=== PATIENT | female | born 1945 | race Caucasian/White ===

== ENCOUNTER 2018-10-30 17:14 | Inpatient (IN) | payer MEDICARE ==
[~2018-10-30] VITALS: Ht 167.6 cm; Wt 60.3 kg
[~2018-10-30 17:14] MED LIST: ADVIL; CALCIUM 600 MG1 EAC4; CALCIUM600 MG PO; COLACE100 MG PO; MELATONIN; PLAQUENIL200 MG PO; PREDNISONE5 MG PO; TYLENOL PM; TYLENOL WITH C1 EACH PO; ULTRAM50 MG PO; UNISOM50 MG PO; VITAMIN D PO; VITAMIN D-3 PO; Z.0.PLAQUENIL200 MG PO; Z.0.PREDNISONE5 MG PO; Z.0.VITAMIN D1000 UN PO
--- OUTSIDE RECORDS SUMMARY | 2018-10-30 17:20 | XMS REPORT ---
Author Author [facility] Address Unknown Phone Unavailable Care Team Providers Care Conference Coordinator Name Role Phone BELKIS WHEATLEY Unavailable Unavailable Problems This patient has no known problems. Allergies, Adverse Reactions, Alerts This patient has no known allergies or adverse reactions. Medications This patient has no known medications. Results Test Description Test Time Test Comments Text Results Atomic Results Result Comments SCR MAMM BILATERAL SKYLAR CAD DIGITAL 2018-06-27 16:12:12 - SCR MAMM BILATERAL SKYLAR CAD DIGITALBILATERAL DIGITAL SCREENING MAMMOGRAM 3D/2D WITH CAD: 06/27/2018CLINICAL: Asymptomatic. Digital breast tomosynthesis was performed in addition to routine CC and MLO views. Current mammographic images were evaluated by either a Yoogaia M-Vu or a TechZel ImageChecker CAD (computer aided detection system). Comparison is made to exams dated 05/20/2017 mammogram, 2016 mammogram, and 05/07/2015 mammogram - [facility]-. There are scattered fibroglandular tissues in both breasts. No suspicious mass, architectural distortion, malignant type calcification, or lymph node abnormality detected. Breast architecture is stable compared to prior exams.IMPRESSION: NEGATIVEThere is no mammographic evidence of malignancy. Resume annual screening mammography in one year. Francisca Main M.D. ar/penrad:06/27/2018 16:12:12 Furniture Painter: [place] , [facility]-FWletter sent: BIRADS 1-2 Normal Mammogram BI-RADS: 1 Negative POCT-GLUCOSE METER 2016-10-05 12:06:00 POC-GLUCOSE METER (BEAKER) (test iwku=3319) 143 mg/dL 70-110 TESTED AT [facility] [address] [facility] [address] POCT-GLUCOSE [id number] 05:48:00* Test Item Value Reference Range Comments POC-GLUCOSE METER (BEAKER) (test fmhk=3774) 109 mg/dL 70-110 TESTED AT [facility] [address] [facility] [address] BASIC METABOLIC [id number] 04:56:00* Test Item Value Reference Range Comments SODIUM (BEAKER) (test rrjs=018) 137 meq/L 136-145 POTASSIUM (BEAKER) (test ekoe=108) 4.0 meq/L 3.5-5.1 CHLORIDE (BEAKER) (test zkmp=827) 106 meq/L 98-107 CO2 (BEAKER) (test vabs=786) 23 meq/L 22-29 BLOOD UREA NITROGEN (BEAKER) (test vpbg=653) 13 mg/dL 7-21 CREATININE (BEAKER) (test beaa=257) 0.70 mg/dL 0.57-1.25 GLUCOSE RANDOM (BEAKER) (test fjki=039) 103 mg/dL 70-105 CALCIUM (BEAKER) (test nsnt=461) 7.9 mg/dL 8.4-10.2 EGFR (BEAKER) (test gegx=9998) 82 mL/min/1.73 sq m ESTIMATED GFR IS NOT ACCURATE CREATININE CLEARANCE IN PREDICTING GLOMERULAR FILTRATION RATE. ESTIMATED GFR IS NOT APPLICABLE FOR DIALYSIS PATIENTS. Once on admission and Daily AM afterwardsOnce on admission and Daily AM afterwar dsOnce on admission and Daily AM [id number] 04:55:00* Test Item Value Reference Range Comments PHOSPHORUS (BEAKER) (test mmza=772) 2.7 mg/dL 2.3-4.7 Once on admission and Daily AM afterwardsOnce on admission and Daily AM afterwar dsOnce on admission and Daily AM [id number] 04:55:00* Test Item Value Reference Range Comments MAGNESIUM (BEAKER) (test qqsp=191) 1.9 mg/dL 1.6-2.6 Once on admission and Daily AM afterwardsOnce on admission and Daily AM afterwar dsOnce on admission and Daily AM afterwardsPOCT-GLUCOSE [id number] 23:37:00 * Test Item Value Reference Range Comments POC-GLUCOSE METER (BEAKER) (test wsds=2766) 128 mg/dL 70-110 TESTED AT [facility] [address] [facility] [address] CBC W/PLT COUNT & AUTO [id number] 19:10:00* Test Item Value Reference Range Comments WHITE BLOOD CELL COUNT (BEAKER) (test qnhn=953) 13.5 K/ L 3.5-10.5 RED BLOOD CELL COUNT (BEAKER) (test yhld=029) 4.90 M/ L 3.93-5.22 HEMOGLOBIN (BEAKER) (test lhgm=804) 12.7 GM/DL 11.2-15.7 HEMATOCRIT (BEAKER) (test iyyq=899) 39.7 % 34.1-44.9 MEAN CORPUSCULAR VOLUME (BEAKER) (test ekjc=101) 81.0 fL 79.4-94.8 MEAN CORPUSCULAR HEMOGLOBIN (BEAKER) (test addv=143) 25.9 pg 25.6-32.2 MEAN CORPUSCULAR HEMOGLOBIN CONC (BEAKER) (test dyzy=726) 32.0 GM/DL 32.2-35.5 RED CELL DISTRIBUTION WIDTH (BEAKER) (test wchg=574) 16.2 % 11.7-14.4 PLATELET COUNT (BEAKER) (test dhmj=655) 178 K/CU MM 150-450 MEAN PLATELET VOLUME (BEAKER) (test jkqc=316) 10.6 fL 9.4-12.3 NUCLEATED RED BLOOD CELLS (BEAKER) (test phiy=186) 0 /100 WBC 0-0 IMMATURE GRANULOCYTES-RELATIVE PERCENT (BEAKER) (test licb=7074) 1 % 0-1 (MANUAL DIFFERENTIAL)2016-10-04 19:10:00* Test Item Value Reference Range Comments NEUTROPHILS - REL (DIFF) (BEAKER) (test qyep=9050) 61 % LYMPHOCYTES - REL (DIFF) (BEAKER) (test jalv=6676) 5 % MONOCYTES - REL (DIFF) (BEAKER) (test ryet=5081) 12 % EOSINOPHILS - REL (DIFF) (BEAKER) (test rumw=2270) 2 % METAMYELOCYTES-REL (DIFF) (BEAKER) (test fzew=204) 8 % 0-0 MYELOCYTES-REL (DIFF) (BEAKER) (test ixjg=9938) 4 % 0-0 BANDS - REL (DIFF) (BEAKER) (test xutu=6612) 8 % 0-10 NEUTROPHILS - ABS (DIFF) (BEAKER) (test wtpb=7404) 7.16 K/ L 1.80-8.00 LYMPHOCYTES - ABS (DIFF) (BEAKER) (test dxbu=5960) 0.59 K/ L 1.48-4.50 MONOCYTES - ABS (DIFF) (BEAKER) (test pcug=4978) 1.41 K/ L 0.00-1.30 EOSINOPHILS - ABS (DIFF) (BEAKER) (test jxzj=6476) 0.23 K/ L 0.00-0.50 METAMYELOCTYES - ABS (DIFF) (BEAKER) (test accu=936) 0.94 K/ L 0.00-0.00 BANDS-ABS (DIFF) (BEAKER) (test abeh=8696) 0.9 K/ L 0.0-0.8 MYELOCYTES-ABS (DIFF) (BEAKER) (test zyct=6497) 0.47 K/ L 0.00-0.00 TOTAL COUNTED (BEAKER) (test kmlu=4717) 100 BANDS + SEGMENTED NEUTROPHILS (BEAKER) (test vjyb=8223) 8.10 MANUAL NRBC PER 100 CELLS (BEAKER) (test oakc=0196) 15 /100 WBC 0-0 DOHLE BODIES (BEAKER) (test vgxn=207) Present GIANT PLATELETS (BEAKER) (test uyjk=535) Present ANISOCYTOSIS (BEAKER) (test geyg=290) 1+ few MACROCYTES (BEAKER) (test fxiq=663) 1+ few
--- OUTSIDE RECORDS SUMMARY | 2018-10-30 17:20 | XMS REPORT | Clinical Summary ---
Author Author [facility] Address Unknown Phone Unavailable Care Team Providers Care Director Multimedia Name Role Phone Adam Mcgrath MD PCP Allergies No Known Allergies Medications End Date Status Medication Sig Dispensed Refills Start Date Active hydroxychloroquine Take 200 mg 0 (PLAQUENIL) 200 mg tablet by mouth 2 (two) times daily. Active predniSONE (DELTASONE) 5 Take 5 mg by 0 MG tablet mouth daily. Active traMADol (ULTRAM) 50 mg Take 50 mg by 0 tablet mouth every 6 (six) hours as needed for Pain. Active calcium carbonate Take 600 mg 0 (OS-NEPTALI) 600 mg (1,500 by mouth 2 mg) Tab (two) times daily with breakfast and dinner. Active cholecalciferol, vitamin Take 1,000 0 D3, 1,000 unit capsule Units by mouth daily. Active metoprolol (LOPRESSOR) 25 Take 25 mg by 0 MG tablet mouth 2 (two) times daily. Active losartan (COZAAR) 25 MG Take 25 mg by 0 tablet mouth daily. Active Problems Problem Noted Date Subarachnoid hemorrhage 10/04/2016 Hypertension 10/04/2016 Rheumatoid arthritis(714.0) 10/04/2016 Family History Medical History Relation Name Comments Diabetes Brother Hypertension Brother Diabetes Father Hypertension Father Relation Name Status Comments Brother Father Social History Date Tobacco Use Types Packs/Day Years Used Never Smoker Alcohol Use Drinks/Week oz/Week Comments No Sex Assigned at Date Recorded Not on file Industry Job Start Date Occupation Not on file Not on file Not on file Travel End Travel History Travel Start No recent travel history available. Last Filed Vital Signs Not on file Plan of Treatment Not on file Results Not on fileafter 10/29/2017 Insurance Payer Benefit Subscriber ID Type Phone Address Plan / Group [employer] CIGNA xxxxxxxxxxx [facility] [employer] Contracted NG ALL Advance Directives For more information, please contact: [address] [address] Date Inactivated Comments Code Status Date Activated 10/05/2016 3:09 PM Full Code 10/04/2016 5:00 PM This code status was determined by: Patient
--- OUTSIDE RECORDS SUMMARY | 2018-10-30 17:25 | XMS REPORT | Clinical Summary ---
Author Author [facility]ARA [facility] Address Unknown Phone Unavailable Care Team Providers Care Code Official Name Role Phone Adam Mcgrath MD PCP [...] Plan / Group [employer] C[employer] xxxxxxxxxxx [facility] [employer] Contracted NG ALL Advance Directives For more information, please contact: [address] [address] Date Inactivated Comments Code Status Date Activated 10/05/2016 3:09 PM Full Code 10/04/2016 5:00 PM This code status was determined by: Patient
[2018-10-30] MEDS ORDERED: ACETAMINOPHEN 1000 MG/100 ML IV ONE (17:35)
[2018-10-30] MEDS ORDERED: SODIUM CHLORIDE 0.9% 1000ML 1,000 ML IV ONE (17:45)
--- NOTE | 2018-10-30 18:26 | NUR ---
STRAIGHT CATH INSERTED FOR UA VIA ASEPTIC TECHNIQUE PER MD ORDER; PT URINE OUTPUT APPROX 250 CC; UA COLLECTED AND SENT TO LAB
[2018-10-30 18:32] LABS: BASOPHILS # (AUTO) 0.1 (0.0-0.1); BASOPHILS % 0.3 % (0.0-1.0); BILIRUBIN,URINE NEGATIVE (NEGATIVE); CLARITY,URINE SL CLOUDY (CLEAR); COLOR,URINE YELLOW (YELLOW); EOSINOPHILS % 0.1 % (0.0-6.0); HEMATOCRIT 38.5 % (34.2-44.1); KETONES,URINE 1+ (NEGATIVE); LEUKOCYTE ESTERASE ,URINE NEGATIVE (NEGATIVE); LYMPHOCYTES # (AUTO) 12.9 (1.0-3.2); LYMPHOCYTES % 77.7 % (18.0-39.1); MEAN CORPUSCULAR HEMOGLOBIN 26.6 pg (28-32); MEAN CORPUSCULAR HGB CONC 33.8 g/dL (31-35); MEAN CORPUSCULAR VOLUME 78.9 fL (81-99); MONOCYTES # (AUTO) 1.2 (0.2-0.8); NEUTROPHILS # (AUTO) 2.4 (2.1-6.9); NEUTROPHILS % 14.7 % (38.7-80.0); NITRITE,URINE NEGATIVE (NEGATIVE); PLATELET COUNT 204 x10e3/uL (140-360); PROTEIN,URINE DIPSTICK 1+ (NEGATIVE); RED BLOOD COUNT 4.88 x10e6/uL (3.6-5.1); RED CELL DISTRIBUTION WIDTH 16.4 % (11.7-14.4); URINE UROBILINOGEN 0.2 mg/dL (0.2 - 1)
[2018-10-30 18:46] LABS: BACTERIA,URINE RARE /HPF; EPITHELIAL CELLS,URINE RARE /LPF
[2018-10-30 18:51] LABS: ALANINE AMINOTRANSFERASE 18 IU/L (0-55); ALBUMIN 3.3 g/dL (3.5-5.0); ALBUMIN/GLOBULIN RATIO 1.1 (0.8-2.0); ALKALINE PHOSPHATASE 44 IU/L (40-150); ANION GAP 15.5 mmol/L (8-16); BLOOD UREA NITROGEN 11 mg/dL (7-26); BUN/CREATININE RATIO 16 (6-25); CALCIUM 8.9 mg/dL (8.4-10.2); CARBON DIOXIDE 22 mmol/L (22-29); CHLORIDE 97 mmol/L (98-107); EST GLOMERULAR FILTRATION RATE > 60 ML/MIN (60-); GLUCOSE 94 mg/dL (74-118); POTASSIUM 3.5 mmol/L (3.5-5.1); SODIUM 131 mmol/L (136-145)
[2018-10-30] MEDS ORDERED: AMLODIPINE BESYL5 MG PO (19:29)
[2018-10-30] MEDS ORDERED: ULTRAM 50MG50 MG PO (19:30)
[2018-10-30] MEDS ORDERED: METOPROLOL TART25 MG PO (19:32)
[2018-10-30] MEDS ORDERED: ALENDRONATE SOD70 MG PO (19:32)
[2018-10-30] MEDS ORDERED: ACETAMINOPHEN325 M1 PO (19:34)
--- NOTE | 2018-10-30 20:17 | Diagnostic Imaging Report ---
Lumbar spine complete CPT code: 49114 Indication: Fall, low back pain Technique: A.P., lateral and bilateral oblique views of the lumbar spine obtained. Comparison: None. Findings: There are five non rib bearing vertebral bodies. The bones are diffusely demineralized. There is dextroscoliosis with the apex at L2-3. There is grade 1 anterolisthesis of L4 on L5 and grade 1 retrolisthesis of L2 on L3. The transverse processes are intact. The vertebral body heights are well maintained. Diffuse disc space narrowing and endplate osteophytosis particularly on the left at L2-3 and L3-4. Oblique views are suboptimal. There is mild facet arthropathy. No abnormalities of the sacroiliac joints. The sacrum is normal. The spinous processes are normally aligned. There is no evidence of subluxation. The bowel gas pattern is unremarkable. Cholecystectomy clips are present. IMPRESSION: 1. Scoliosis and superimposed degenerative changes of the spine. No compression fracture. 2. Retrolisthesis of L2 on L3 and anterolisthesis of L4 on L5, grade 1, likely secondary to scoliosis. Signed by: Dr. Rayna Moyer MD on 10/30/2018 8:14 PM
--- NOTE | 2018-10-30 20:21 | Diagnostic Imaging Report ---
EXAMINATION: CHEST SINGLE (NOT PORTABLE) COMPARISON: None INDICATION: ^FEVER/PAIN ^[id number] ^1949 DISCUSSION: Frontal view of the chest obtained at 1952 hours. HEART AND MEDIASTINUM: The heart is normal in size. There is mild aortic tortuosity LINES: None. LUNGS: The lungs are well inflated and clear. No pneumonia or pulmonary edema. PLEURA: Mild eventration of the right diaphragm. No pleural effusion or pneumothorax BONES AND SOFT TISSUES: Scoliosis of the lumbar spine with superimposed degenerative changes. No fracture or focal osseous lesion. Cholecystectomy clips in the right upper quadrant. IMPRESSION: No acute cardiopulmonary disease. Signed by: Dr. Rayna Moyer MD on 10/30/2018 8:17 PM
--- OUTSIDE RECORDS SUMMARY | 2018-10-30 21:48 | XMS REPORT | Clinical Summary ---
Author Author [facility]ARA [facility] Address Unknown Phone Unavailable Care Team Providers Care Bar Machine Operator Multiple Spindle Name Role Phone Adam Mcgrath MD PCP [...] Plan / Group [employer] C[employer] xxxxxxxxxxx [facility] [employer] Contracted NG ALL Advance Directives For more information, please contact: [address] [address] Date Inactivated Comments Code Status Date Activated 10/05/2016 3:09 PM Full Code 10/04/2016 5:00 PM This code status was determined by: Patient
[2018-10-30 22:01] LABS: LYMPHOCYTES % (MANUAL) 32 % (19-48); MONOCYTES % (MANUAL) 8 % (3.4-9.0); NEUTROPHILS % (MANUAL) 15 % (40-74); PLATELET ESTIMATE ADEQUATE; PLATELET MORPHOLOGY COMMENT NORMAL; RBC MORPHOLOGY COMMENT NORMAL
--- NOTE | 2018-10-30 22:16 | NUR ---
PT PLACED ON TELEMETRY BOX #6. ROOM ASSIGNMENT CHANGED, CURTAIN FRAMER CALLED AND INFORMED.
[2018-10-30 23:00] VITALS: BP 119/67
[2018-10-30] MEDS: ONDANSETRON HCL INJ 2MG/ML 2ML 2 MG/ML VIAL IV PRN (23:00)
[2018-10-30] MEDS: MORPHINE SULFATE INJ 4 MG/ML INJ 1ML IV PRN (23:00)
--- NOTE | 2018-10-30 23:34 | NUR ---
PATIENT RECEIVED FROM EMERGENCY DEPARTMENT PER STRETCHER AT 2230. ALERT AND ORIENTED X3, NO RESPIRATORY DISTRESS OBSERVED. SKIN INTEGRITY INTACT, ASSISTED ON THE BEDPAN AND PURE WICK HAS BEEN APPLIED FOR COMFORT. MEDICATED WITH MORPHINE AND ZOFRAN FOR PAIN AND NAUSEA ORDERED. CALL LIGHT WITHIN EASY REACH, FAMILY MEMBERS WITH THE PATIENT.
[2018-10-31] VITALS (8 sets, daily range): BP systolic 115–134; BP diastolic 65–70
--- NOTE | 2018-10-31 01:38 | NUR ---
PATIENT SOUNDLY ASLEEP, NO RESPIRATORY DISTRESS OBSERVED. BED ALARM ON, CALL LIGHT WITHIN EASY REACH.
--- NOTE | 2018-10-31 04:15 | NUR ---
PATIENT ASSISTED TO THE RESTROOM, GAIT UNSTEADY. SHE'S NOW BACK IN BED WITHOUT RESPIRATORY DISTRESS. CALL LIGHT WITHIN EASY REACH, HER IS WITH HER. Addendum: 10/31/18 at 0742 by Pearl Arellano RN WRONG PATIENT
[2018-10-31] MEDS: MORPHINE SULFATE INJ 4 MG/ML INJ 1ML IV PRN ×3 (05:15→17:16)
[2018-10-31] MEDS: ONDANSETRON HCL INJ 2MG/ML 2ML 2 MG/ML VIAL IV PRN ×3 (05:15→17:16)
--- NOTE | 2018-10-31 05:15 | NUR ---
REPOSITION WITH PILLOW SUPPORT, PATIENT MEDICATED WITH MORPHINE AND ZOFRAN FOR PAIN AND NAUSEA. CALL LIGHT WITHIN EASY REACH, PURE WICK INTACT.
[2018-10-31 06:08] LABS: BASOPHILS # (AUTO) 0.1 (0.0-0.1); BASOPHILS % 0.4 % (0.0-1.0); HEMATOCRIT 36.9 % (34.2-44.1); HEMOGLOBIN 12.2 g/dL (12.0-16.0); LYMPHOCYTES # (AUTO) 11.1 (1.0-3.2); LYMPHOCYTES % 77.7 % (18.0-39.1); MEAN CORPUSCULAR HEMOGLOBIN 26.5 pg (28-32); MEAN CORPUSCULAR HGB CONC 33.1 g/dL (31-35); MEAN CORPUSCULAR VOLUME 80.2 fL (81-99); MONOCYTES % 7.2 % (4.4-11.3); NEUTROPHILS # (AUTO) 2.1 (2.1-6.9); NEUTROPHILS % 14.6 % (38.7-80.0); PLATELET COUNT 200 x10e3/uL (140-360); RED CELL DISTRIBUTION WIDTH 16.6 % (11.7-14.4)
[2018-10-31 06:39] LABS: ALANINE AMINOTRANSFERASE 16 IU/L (0-55); ALBUMIN 2.9 g/dL (3.5-5.0); ALKALINE PHOSPHATASE 40 IU/L (40-150); ANION GAP 10.7 mmol/L (8-16); BLOOD UREA NITROGEN 11 mg/dL (7-26); BUN/CREATININE RATIO 17 (6-25); CALCIUM 8.4 mg/dL (8.4-10.2); CARBON DIOXIDE 23 mmol/L (22-29); CHLORIDE 99 mmol/L (98-107); CREATININE, SERUM 0.65 mg/dL (0.57-1.11); EST GLOMERULAR FILTRATION RATE > 60 ML/MIN (60-); GLUCOSE 98 mg/dL (74-118); POTASSIUM 3.7 mmol/L (3.5-5.1); SODIUM 129 mmol/L (136-145)
--- NOTE | 2018-10-31 06:53 | NUR ---
H&P cc: back pain and fever HPI: 73yoF, PCP , developed back pain/fever. Lower back, with right groin pain. No dysuria; no f/c/s. PMH: HTN, anemia , osteoporosis, rheumatoid arthritis, fibromyalgia, RCC right kidney s/p partial nephrectomy Phsx; partial nephrectomy(R, csecx2; hysterectomy, cataract, bunionectomy B/L Allergies; see emr fh/sh; ; no etoh/cigs meds; see MAR ROS; no cp/sob/dizziness/vision changes/MOERNO/diarrhea/N/V. 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
[2018-10-31] MEDS ORDERED: SODIUM CHLORIDE 0.9% 100 ML 100 ML IV ONE (07:00)
[2018-10-31] MEDS ORDERED: CEFTRIAXONE SOD 1 GM/NS 50 ML 50 ML IV SCH (07:30)
[2018-10-31] MEDS: FAMOTIDINE 20 MG TAB PO SCH ×2 (07:30→17:16)
[2018-10-31 07:39] LABS: LYMPHOCYTES % (MANUAL) 83 % (19-48); MONOCYTES % (MANUAL) 2 % (3.4-9.0); NEUTROPHILS % (MANUAL) 15 % (40-74)
[2018-10-31 07:44] LABS: RBC MORPHOLOGY COMMENT NORMAL
[2018-10-31] MEDS ORDERED: SODIUM CHLORIDE 0.9% 1000ML 1,000 ML ONE (08:50)
--- NOTE | 2018-10-31 17:17 | NUR ---
Patient OOB and ambulated with PT about 80 feet needing assistance due to unsteady gait. Recommending SNF for PT. Medicated as ordered for back pains, OOB and assisted to bathroom as encouraged to get OOB and ambulate, able to call for assistance, tolerated IV abx, will monitor. Call light within reach.
--- NOTE | 2018-10-31 19:46 | NUR ---
Patient refuses MRI stating severe claustrophobia. Further states sedatives are not enough and she would have to be put completely under anesthesia.
[2018-10-31 19:51] LABS: BASOPHILS % 0.2 % (0.0-1.0); HEMATOCRIT 37.6 % (34.2-44.1); HEMOGLOBIN 12.3 g/dL (12.0-16.0); LYMPHOCYTES % 77.1 % (18.0-39.1); MEAN CORPUSCULAR HEMOGLOBIN 26.1 pg (28-32); MEAN CORPUSCULAR HGB CONC 32.7 g/dL (31-35); MEAN CORPUSCULAR VOLUME 79.8 fL (81-99); MONOCYTES % 7.3 % (4.4-11.3); NEUTROPHILS % 15.2 % (38.7-80.0); PLATELET COUNT 184 x10e3/uL (140-360); RED BLOOD COUNT 4.71 x10e6/uL (3.6-5.1); RED CELL DISTRIBUTION WIDTH 16.6 % (11.7-14.4)
[2018-10-31 20:22] LABS: ERYTHROCYTE SEDIMENTATION RATE 31 mm/hr (0-20)
[2018-10-31] MEDS: ACETAMINOPHEN 325 MG TAB PO PRN (23:25)
[2018-11-01 04:40] VITALS: BP 115/63
[2018-11-01] MEDS: MORPHINE SULFATE INJ 4 MG/ML INJ 1ML IV PRN ×3 (04:50→17:36)
[2018-11-01] MEDS: ONDANSETRON HCL INJ 2MG/ML 2ML 2 MG/ML VIAL IV PRN ×3 (04:50→17:36)
[2018-11-01 05:43] LABS: BASOPHILS % 0.3 % (0.0-1.0); EOSINOPHILS # (AUTO) 0.1 (0.0-0.4); EOSINOPHILS % 0.6 % (0.0-6.0); HEMATOCRIT 37.6 % (34.2-44.1); HEMOGLOBIN 12.2 g/dL (12.0-16.0); LYMPHOCYTES # (AUTO) 9.4 (1.0-3.2); LYMPHOCYTES % 73.8 % (18.0-39.1); MEAN CORPUSCULAR HEMOGLOBIN 26.1 pg (28-32); MEAN CORPUSCULAR HGB CONC 32.4 g/dL (31-35); MEAN CORPUSCULAR VOLUME 80.3 fL (81-99); MONOCYTES # (AUTO) 1.1 (0.2-0.8); MONOCYTES % 8.4 % (4.4-11.3); NEUTROPHILS # (AUTO) 2.1 (2.1-6.9); NEUTROPHILS % 16.7 % (38.7-80.0); PLATELET COUNT 189 x10e3/uL (140-360); RED BLOOD COUNT 4.68 x10e6/uL (3.6-5.1); RED CELL DISTRIBUTION WIDTH 16.5 % (11.7-14.4)
[2018-11-01 06:03] LABS: ANION GAP 11.8 mmol/L (8-16); BLOOD UREA NITROGEN 10 mg/dL (7-26); BUN/CREATININE RATIO 14 (6-25); CALCIUM 8.4 mg/dL (8.4-10.2); CARBON DIOXIDE 25 mmol/L (22-29); CHLORIDE 96 mmol/L (98-107); CREATININE, SERUM 0.69 mg/dL (0.57-1.11); EST GLOMERULAR FILTRATION RATE > 60 ML/MIN (60-); GLUCOSE 88 mg/dL (74-118); POTASSIUM 3.8 mmol/L (3.5-5.1); SODIUM 129 mmol/L (136-145)
[2018-11-01 06:28] LABS: LYMPHOCYTES % (MANUAL) 78 % (19-48); MONOCYTES % (MANUAL) 9 % (3.4-9.0); NEUTROPHILS % (MANUAL) 13 % (40-74)
[2018-11-01 06:30] LABS: PLATELET ESTIMATE SLIGHTLY INCREASED; RBC MORPHOLOGY COMMENT NORMAL
[2018-11-01] MEDS: FAMOTIDINE 20 MG TAB PO SCH ×2 (07:30→17:23)
--- NOTE | 2018-11-01 07:48 | NUR ---
IM- progress note O/N no events ROS; no cp/sob/dizziness/vision changes/MORENO/diarrhea/N/V. 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 Jorge Robles MD, PhD.
[2018-11-01] MEDS: CEFEPIME 1GM/NS 0.9% 50 ML 50 ML IV SCH (08:00)
[2018-11-01 08:15] VITALS: BP 143/72
--- NOTE | 2018-11-01 08:17 | NUR ---
Patient alert and responsive, received this morning and in excrutiating pain 10/10 to left ankle and attending aware during rounds. Orders for 2 view left ankle and other orders in place. Will monitor, call light within reach.
[2018-11-01] MEDS: SODIUM CHLORIDE 0.9% 1000ML 1,000 ML IV SCH ×2 (08:43→17:23)
--- NOTE | 2018-11-01 08:44 | NUR ---
Patient signed consent for picc line, medicated for pain after and 2 view x-rays will be done to left ankle.
[2018-11-01] MEDS: VANCOMYCIN 1GM/NS 250 ML 250 ML IV SCH (09:33)
--- NOTE | 2018-11-01 11:08 | NUR ---
EDUCATED ABOUT IMM SIGNED FILED IN CHART AND LEFT COPY WITH PT BEDSIDE WITH CARD FOR ANY FURTHER QUESTIONS. sPOKE WITH PT ABOUT SNF ORDER SIGNED CHOICE FOR [facility]. FILED IN CHART WILL PRINT CLINICALS AND FAX TO FACILITY.
[2018-11-01 11:09] VITALS: BP 143/72
--- NOTE | 2018-11-01 11:21 | Diagnostic Imaging Report ---
Left ankle, 3 views. History: Left ankle pain. Findings: The soft tissues are normal. Bone mineralization is normal. There is no evidence of fracture or dislocation. There are no lytic or sclerotic lesions. The joint spaces are within normal limits. IMPRESSION: Normal left ankle. Signed by: Aleksey Ely on 11/01/2018 11:18 AM
[2018-11-01 12:22] VITALS: BP 137/67
[2018-11-01] MEDS: ACETAMINOPHEN 325 MG TAB PO PRN (12:35)
--- NOTE | 2018-11-01 13:59 | Diagnostic Imaging Report ---
Chest, 1 view, 11/01/2018. History: PICC placement. Comparison: 10/30/2018. Findings: The cardiomediastinal silhouette and pulmonary vasculature are within normal limits for a portable exam. There is no focal consolidation or pleural effusion. Right upper extremity PICC terminates in the region of the SVC. There are no acute osseous or soft tissue abnormalities. Impression: No acute cardiopulmonary abnormality. PICC in adequate position. Signed by: Aleksey Ely on 11/01/2018 1:56 PM
--- NOTE | 2018-11-01 14:14 | NUR ---
Pt received resting in bed. Oriented to staff and surroundings. Call nixon within reach. Will monitor
[2018-11-01 16:00] VITALS: BP 116/60
[2018-11-01 17:24] LABS: ANION GAP 11.3 mmol/L (8-16); BLOOD UREA NITROGEN 9 mg/dL (7-26); BUN/CREATININE RATIO 15 (6-25); CALCIUM 8.1 mg/dL (8.4-10.2); CARBON DIOXIDE 23 mmol/L (22-29); CHLORIDE 96 mmol/L (98-107); CREATININE, SERUM 0.61 mg/dL (0.57-1.11); EST GLOMERULAR FILTRATION RATE > 60 ML/MIN (60-); GLUCOSE 101 mg/dL (74-118); MAGNESIUM 1.8 MG/DL (1.3-2.1); POTASSIUM 3.3 mmol/L (3.5-5.1); SODIUM 127 mmol/L (136-145)
[2018-11-01] MEDS ORDERED: POTASSIUM CHLORIDE 20 MEQ TAB CR PO NR (18:34)
--- NOTE | 2018-11-01 19:20 | NUR ---
Patient visited in room during nursing rounds. Patient alert and oriented x3. Pt stated she feels weak at this time to ambulate. Purewick in place and pt diapered. PICC on EMMIE saline locked. V/S stable. Call nixon within reach. Will monitor closely.
[2018-11-01 20:00] VITALS: BP 126/89
--- NOTE | 2018-11-01 20:24 | NUR ---
Pt resting in bed. Handoff given to oncoming staff. Call nixon within reach.
[2018-11-01] MEDS ORDERED: SODIUM CHLORIDE 1 GM TAB PO SCH (21:00)
[2018-11-02] VITALS (7 sets, daily range): BP systolic 102–132; BP diastolic 56–70
[2018-11-02] MEDS: ACETAMINOPHEN 325 MG TAB PO PRN ×2 (00:33→20:14)
--- NOTE | 2018-11-02 05:40 | NUR ---
IM- progress note O/N no events ROS; no cp/sob/dizziness/vision changes/MORENO/diarrhea/N/V. 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 11/02 f/u lytes this am; d/c to SNF when approved. Jorge Robles MD, PhD.
[2018-11-02 05:44] LABS: BASOPHILS % 0.3 % (0.0-1.0); EOSINOPHILS % 0.1 % (0.0-6.0); HEMOGLOBIN 11.8 g/dL (12.0-16.0); LYMPHOCYTES # (AUTO) 8.7 (1.0-3.2); LYMPHOCYTES % 75.6 % (18.0-39.1); MEAN CORPUSCULAR HEMOGLOBIN 26.5 pg (28-32); MEAN CORPUSCULAR HGB CONC 33.7 g/dL (31-35); MEAN CORPUSCULAR VOLUME 78.7 fL (81-99); MONOCYTES # (AUTO) 0.9 (0.2-0.8); MONOCYTES % 7.6 % (4.4-11.3); NEUTROPHILS # (AUTO) 1.9 (2.1-6.9); NEUTROPHILS % 16.2 % (38.7-80.0); PLATELET COUNT 190 x10e3/uL (140-360); RED BLOOD COUNT 4.45 x10e6/uL (3.6-5.1); RED CELL DISTRIBUTION WIDTH 16.3 % (11.7-14.4)
[2018-11-02 05:57] LABS: BLOOD UREA NITROGEN 7 mg/dL (7-26); BUN/CREATININE RATIO 13 (6-25); CALCIUM 8.3 mg/dL (8.4-10.2); CARBON DIOXIDE 23 mmol/L (22-29); CHLORIDE 97 mmol/L (98-107); CREATININE, SERUM 0.52 mg/dL (0.57-1.11); EST GLOMERULAR FILTRATION RATE > 60 ML/MIN (60-); GLUCOSE 95 mg/dL (74-118); SODIUM 126 mmol/L (136-145)
--- NOTE | 2018-11-02 06:14 | NUR ---
As per request from Dr. Robles, left message to inform K level of 4 and Na level of 126. Awaiting on further orders from .
--- NOTE | 2018-11-02 06:16 | NUR ---
Received orders from Dr. Robles to check Sodium levels at 2pm today and change Sodium tablet from 1 gm to 2gm Q12hr.
[2018-11-02] MEDS: FAMOTIDINE 20 MG TAB PO SCH ×2 (06:33→16:12)
[2018-11-02 07:32] LABS: LYMPHOCYTES % (MANUAL) 74 % (19-48); MONOCYTES % (MANUAL) 8 % (3.4-9.0); NEUTROPHILS % (MANUAL) 18 % (40-74)
[2018-11-02 07:33] LABS: PLATELET ESTIMATE MODERATELY INCREASED; RBC MORPHOLOGY COMMENT NORMAL
[2018-11-02] MEDS: MORPHINE SULFATE INJ 4 MG/ML INJ 1ML IV PRN ×2 (08:55→16:10)
[2018-11-02] MEDS: ONDANSETRON HCL INJ 2MG/ML 2ML 2 MG/ML VIAL IV PRN ×2 (08:55→16:10)
[2018-11-02] MEDS: CEFEPIME 1GM/NS 0.9% 50 ML 50 ML IV SCH (08:55)
[2018-11-02] MEDS: SODIUM CHLORIDE 1 GM TAB PO SCH ×2 (08:56→20:14)
[2018-11-02] MEDS: VANCOMYCIN 1GM/NS 250 ML 250 ML IV SCH (09:00)
--- NOTE | 2018-11-02 09:05 | NUR ---
All meds given as ordered. Call nixon within reach. Purewick in place. Will monitor
--- NOTE | 2018-11-02 18:33 | NUR ---
All meds given as ordered. Emotional support given. Call nixon within reach. Will endorse to next shift
--- NOTE | 2018-11-02 20:20 | NUR ---
PICC on right upper arm was observed to be coming out (i.e. 3/4 of catheter already pulled out). Nurse (Jhon) went ahead and totally pulled out the rest of the PICC catheter. Will notify Dr. Robles.
--- NOTE | 2018-11-02 20:29 | NUR ---
Called Dr. Robles and notified that PICC came out. Dr. Robles aware and ordered to have PICC nurse replace new PICC on patient for purpose of fpc IV antibiotic.
[2018-11-03] VITALS: BP 132/68
--- NOTE | 2018-11-03 | NUR ---
PICC nurse in room placing PICC on left arm.
--- NOTE | 2018-11-03 00:05 | NUR ---
New PICC (double lumen) place on left upper arm. STAT CXR to be ordered for check of placement.
--- NOTE | 2018-11-03 00:30 | NUR ---
Portable CXR in progress.
--- NOTE | 2018-11-03 00:52 | Diagnostic Imaging Report ---
EXAMINATION: CHEST SINGLE (PORTABLE) INDICATION: PICC line placement COMPARISON: Chest radiograph 11/01/2018 FINDINGS: AP view TUBES and LINES: Interval removal of right upper extremity PICC with interval placement of a left upper extremity PICC, tip terminates at the superior cavoatrial junction.. LUNGS: Lungs are well inflated. Lungs are clear. There is no evidence of pneumonia or pulmonary edema. PLEURA: No pleural effusion or pneumothorax. HEART AND MEDIASTINUM: The cardiomediastinal silhouette is unremarkable. BONES AND SOFT TISSUES: No acute osseous lesion. Soft tissues are unremarkable. UPPER ABDOMEN: No free air under the diaphragm. IMPRESSION: Interval removal of right upper extremity PICC with interval placement of a left upper extremity PICC, tip terminates at the superior cavoatrial junction. No acute thoracic abnormality. Signed by: Kirt Queen DO on 11/03/2018 12:48 AM
--- NOTE | 2018-11-03 01:00 | NUR ---
Received call from Ricky Sanders (PICC RN) and he mentioned after review of CXR by Dr. Queen, the PICC line is ok to use.
[2018-11-03] MEDS: ACETAMINOPHEN 325 MG TAB PO PRN (02:51)
[2018-11-03 04:00] VITALS: BP 115/59
[2018-11-03] MEDS: FAMOTIDINE 20 MG TAB PO SCH (06:26)
[2018-11-03 06:38] LABS: BASOPHILS % 0.3 % (0.0-1.0); EOSINOPHILS % 0.3 % (0.0-6.0); HEMATOCRIT 35.3 % (34.2-44.1); HEMOGLOBIN 11.6 g/dL (12.0-16.0); LYMPHOCYTES # (AUTO) 9.3 (1.0-3.2); LYMPHOCYTES % 80.3 % (18.0-39.1); MEAN CORPUSCULAR HEMOGLOBIN 25.8 pg (28-32); MEAN CORPUSCULAR HGB CONC 32.9 g/dL (31-35); MEAN CORPUSCULAR VOLUME 78.4 fL (81-99); MONOCYTES # (AUTO) 0.8 (0.2-0.8); MONOCYTES % 6.7 % (4.4-11.3); NEUTROPHILS # (AUTO) 1.4 (2.1-6.9); NEUTROPHILS % 12.2 % (38.7-80.0); PLATELET COUNT 196 x10e3/uL (140-360); RED CELL DISTRIBUTION WIDTH 16.3 % (11.7-14.4)
--- NOTE | 2018-11-03 06:55 | NUR ---
D/C summary Principal dx: Sepsis Hyponatremia Dehydration Lumbago Secondary dx: RA Fibromyalgia HTN Hx RCC right PLAN Further imaging IVF IV abx; cultures PT consult Prop; scd; pepcid 11/01 sed rate elevated at 31; CRP pending; MRI lumbar/thoracic pending; cont broad spec abx; all cx neg to date; PT consult; SNF eval for PT needs; Pt did fall at home- cont PT. 11/02 f/u lytes this am; d/c to SNF when approved. d/c to SNF f/u pcp 1 week stable d/c>35mins Jorge Robles MD, PhD.
--- NOTE | 2018-11-03 07:00 | NUR ---
received am report from BYRON Ferreira and morning rounds done. pt is alert and resting in bed, no s/s of distress. call light within reach and instructed to call nurse for help.
[2018-11-03 07:01] LABS: ANION GAP 11.9 mmol/L (8-16); BLOOD UREA NITROGEN 10 mg/dL (7-26); BUN/CREATININE RATIO 17 (6-25); CALCIUM 8.3 mg/dL (8.4-10.2); CARBON DIOXIDE 23 mmol/L (22-29); CHLORIDE 101 mmol/L (98-107); CREATININE, SERUM 0.58 mg/dL (0.57-1.11); EST GLOMERULAR FILTRATION RATE > 60 ML/MIN (60-); GLUCOSE 95 mg/dL (74-118); POTASSIUM 3.9 mmol/L (3.5-5.1); SODIUM 132 mmol/L (136-145)
[2018-11-03 07:26] VITALS: BP 159/58
--- NOTE | 2018-11-03 07:47 | NUR ---
PT ACCEPTED TO ROOM [address] AND CONT[address]ING UNDER [address] FIORELLA RODRIGUEZ AT [facility], RTF COMPLETED AND GIVEN TO NURSE TO COMPLETE TRANSFER. CALL REPORT TO [phone]
[2018-11-03 07:51] VITALS: BP 159/58
--- NOTE | 2018-11-03 08:29 | NUR ---
report was given to Patsy pedroza [facility] ([phone])
[2018-11-03] MEDS ORDERED: MELOXICAM 7.5 MG TAB PO SCH (09:00)
[2018-11-03] MEDS: SODIUM CHLORIDE 1 GM TAB PO SCH (09:25)
[2018-11-03 10:16] LABS: MONOCYTES % (MANUAL) 8 % (3.4-9.0); NEUTROPHILS % (MANUAL) 92 % (40-74); PLATELET ESTIMATE SLIGHTLY DECREASED; RBC MORPHOLOGY COMMENT NORMAL
== END 2018-11-03 09:57 | DRG 872 ==
LOC: ER 17:22 → ERHOLD 21:46 → IMCU 22:55 → OBSVTOIN 11-01 09:28 → MED/SURG3 11-01 14:04
PROVIDERS: ADMIT Internal Medicine; ATTEND Internal Medicine
PROC: 02HV33Z Insertion of Infusion Device into Superior Vena Cava, Percutaneous Approach (ICD-10-PCS; 2018-11-01)
PROC: 02HV33Z Insertion of Infusion Device into Superior Vena Cava, Percutaneous Approach (ICD-10-PCS; principal; 2018-11-03)
DX: A41.9 Sepsis, unspecified organism (principal); E87.1 Hypo-osmolality and hyponatremia; I10 Essential (primary) hypertension; D64.9 Anemia, unspecified; M81.0 Age-related osteoporosis without current pathological fracture; M06.9 Rheumatoid arthritis, unspecified; M79.7 Fibromyalgia; Z85.528 Personal history of other malignant neoplasm of kidney; Z90.5 Acquired absence of kidney; Z90.710 Acquired absence of both cervix and uterus; E86.0 Dehydration
CPT/HCPCS: 36415; 36569; 71045; 72110; 80048; 80053; 80202; 81001; 83605; 83735; 84295; 85025; 85651; 86140; 87040; 87086; 93005; 96374; 96376; 97139; 99284; G0378; J0692; J0696; J2270; J2405; J3370; J7030